=== PATIENT | male | born 1985 | race African-American/Black ===

== ENCOUNTER 2017-08-27 18:17 | Emergency (ER) | payer OTHER ==
[~2017-08-27] VITALS: Ht 193 cm; Wt 70.0 kg
[2017-08-27 18:25] VITALS: BP 128/87; PULSE 52; RESP 18; TEMP 98.5; O2SAT 100
--- NOTE | 2017-08-27 19:43 | PD ---
HPI Chief Complaint: Oral / Dental Pain or Problem Time Seen by Provider: 18:52 Travel History International Travel<30 days: No Contact w/Intl Traveler<30days: No Traveled to known affect area: No History of Present Illness HPI Patient comes in complaining of right lower dental pain ongoing for a year that he has been using paper towel to stuff the cavity. Patient reports the paper towel was alleviating his pain until yesterday. Patient states his dentist told him that he could not do anything for him but did not refer him to an oral surgeon. Patient describes pain is throbbing like in nature and radiates throughout his mandible. Pain is worse with movement of his right jaw. Denies any fevers or difficulty swallowing. PFSH Past Medical History Medical History: Denies Significant Hx Past Surgical History Surgical History: No Previous Surgery Social History Alcohol Use: No Tobacco Use: No Substance Use: No Allergies-Medications (Allergen,Severity, Reaction): Coded Allergies: No Known Allergies (Unverified , 08/27/17) Reported Meds & Prescriptions Reported Meds & Active Scripts Active Naprosyn (Naproxen) 500 Mg Tab 500 Mg PO Q12HR PRN Clindamycin (Clindamycin HCl) 150 Mg Cap 2 Cap PO Q6H 10 Days Review of Systems Except as stated in HPI: all other systems reviewed are Neg Physical Exam Narrative GENERAL: Well-developed, well nourished, in no acute distress, and non-ill appearing. SKIN: Focused skin assessment warm and dry. HEAD: Atraumatic. Normocephalic. EYES: Pupils equal and round. EOMI. No scleral icterus. No injection or drainage. ENT: No nasal bleeding or discharge. Mucous membranes pink and moist. Poor dentition with this or palpable abscess. Floor the mouth submandibular, submental are all soft tissue to palpation. NECK: Trachea midline. No cervical lymphadenopathy. Supple. No nuclear rigidity. RESPIRATORY: No accessory muscle use. No respiratory distress. MUSCULOSKELETAL: No obvious deformities. No clubbing. No cyanosis. No edema. Full range of motion. NEUROLOGICAL: Awake and alert. No obvious cranial nerve deficits. Motor grossly within normal limits. Normal speech. PSYCHIATRIC: Appropriate mood and affect; insight and judgment normal. Data Data Last Documented VS Vital Signs Date Time Temp Pulse Resp B/P (MAP) Pulse Ox O2 Delivery O2 Flow Rate FiO2 08/27/17 20:29 08/27/17 18:25 98.5 52 18 100 Orders Orders Ed Discharge Order (08/27/17 19:47) MDM Medical Decision Making Medical Screen Exam Complete: Yes Emergency Medical Condition: Yes Differential Diagnosis Dental abscess, dental infection, dentalgia, Sai angina Narrative Course The patient presented with dental pain. There is no fever. There is no significant facial swelling or evidence of cellulitis. There is poor dentition but no evidence of drainable abscess at this time. There is no evidence of significant deep or invading abscess at this time. The patient will be placed on antibiotics and pain medication. The patient was instructed to follow up with a dentist. The patient was given an oral surgeon follow-up. Warnings were discussed with the patient regarding worsening of infection. The patient is to return if pain worsens, develops progressive swelling or facial redness or fever. The patient agrees with plan. Patient in no obvious distress upon re-evaluation. Patient was asked if they wanted to speak to my attending, which the patient did not wish to do at this time. Any questions/concerns in reference to patient diagnosis/condition discussed and clarified prior to patient's discharge. Reinforced sheer importance of close follow up with patient's primary physician or primary care clinic, dentist, and/or oral surgeon. Instructed patient to return to ED immediately, if symptoms return/worsen. Patient showed understanding of above instructions. Further instructions and recommendations were detailed in discharge paperwork. Patient ambulated without difficulty out of ED at discharge. Diagnosis Primary Impression: Infected dental caries Patient Instructions: Dental Abscess (GEN), Dental Caries (DC), General Instructions Additional Instructions: Follow-up with your primary care physician and dentist as soon as possible. Rinse mouth with warm salt water gargles. Take all medication as prescribed. Return to the emergency department if symptoms get worse. Dr. Carey Daniel Dentist - behavioral health rn [address] [facility], [place] [address] [phone] Med/Other Pt SpecificInfo: Prescription(s) given Scripts Naproxen (Naprosyn) 500 Mg Tab 500 MG PO Q12HR Y for PAIN SCALE 1 TO 10, #14 TAB 0 Refills Prov: Torsten Siegel MD 08/27/17 Clindamycin (Clindamycin) 150 Mg Cap 2 CAP PO Q6H for Infection for 10 Days, #80 CAP 0 Refills Prov: Torsten Siegel MD 08/27/17 Disposition: 01 DISCHARGE HOME Condition: Stable Joseph Espinoza Aug 27, 2017 19:43
[2017-08-27] MEDS ORDERED: CLIN150C14 PO (19:46)
[2017-08-27] MEDS ORDERED: NAPR500 PO (19:46)
== END 2017-08-27 20:30 | disposition home or self-care (01) ==
LOC: NEPD 18:17
DX: K02.9 Dental caries, unspecified (principal)
CPT/HCPCS: 99283